=== PATIENT | female | born 1970 | race Caucasian/White ===

== ENCOUNTER 2018-04-05 00:46 | Emergency (ER) | payer OTHER ==
[~2018-04-05] VITALS: Ht 162.6 cm; Wt 90.0 kg
[2018-04-05 01:05] LABS: APPEARANCE SL.HAZY ((CLEAR)); BILIRUBIN NEGATIVE; BLOOD NEGATIVE; COLOR YELLOW ((YELLOW)); GLUCOSE (STRIP) NEGATIVE; KETONES NEGATIVE; LEUKOCYTES LARGE; NITRITE NEGATIVE; PROTEIN (STRIP) 30; SPECIFIC GRAVITY 1.025 (1.000-1.030)
[2018-04-05 01:08] LABS: BACTERIA RARE /HPF; CALCIUM OXALATE CRYSTALS 3+ /HPF; EPITHELIAL CELLS 3+ /HPF; HYALINE CASTS 0-5 /LPF; MUCUS 1+ /LPF; UCUL ADDED? YES; WHITE BLOOD CELLS 40-50 /HPF (0-5)
[2018-04-05 01:11] LABS: HEMATOCRIT 44.2 % (36.0-46.0); HEMOGLOBIN 15.5 G/DL (11.9-15.5); MCH 31.2 PG (29.0-34.0); MCHC 35.1 G/DL (30.0-36.0); MCV 88.9 FL (83-99); PLATELET COUNT 206 K/uL (156-360); RBC DIS.WIDTH-CV 12.5 % (11.8-14.6); RBC DIS.WIDTH-SD 40.8 % (39-53); RED BLOOD COUNT 4.97 M/uL (3.80-5.20); WHITE BLOOD COUNT 10.9 K/uL (4.1-10.2)
[2018-04-05 01:29] LABS: CHLORIDE 102 mEq/L (99-109); SODIUM 138 mEq/L (136-147)
[2018-04-05 01:31] LABS: GLUCOSE 109 mg/dL (70-99)
[2018-04-05 01:36] LABS: UREA NITROGEN (BUN) 13 mg/dL (9-23)
[2018-04-05 01:38] LABS: GFR ESTIMATE (CALCULATED) > 59 mL/min/
[2018-04-05 01:44] LABS: QUANTITATIVE HCG < 4.0 MIU/ML
[2018-04-05 02:08] LABS: ALBUMIN 4.6 g/dL (3.2-4.8)
[2018-04-05 02:10] LABS: TOTAL PROTEIN 7.8 g/dL (6.4-8.3)
[2018-04-05 02:12] LABS: TOTAL BILIRUBIN 0.8 mg/dL (0.0-1.0)
[2018-04-05 02:14] LABS: ALKALINE PHOSPHATASE 116 IU/L (3-129)
[2018-04-05 02:16] LABS: ALT (GPT) 25 IU/L (3-49); AST (GOT) 17 IU/L (2-34); DIRECT BILIRUBIN 0.2 mg/dL (0.0-0.3)
[2018-04-05 02:17] LABS: LIPASE 60 U/L (1.0-51.0)
[2018-04-05] MEDS ORDERED: MOTRIN800 MG PO (05:00)
[2018-04-05] MEDS ORDERED: KEFLEX500 MG PO (05:00)
[2018-04-05 05:36] VITALS: BP 161/98
== END 2018-04-05 05:36 | disposition home or self-care (01) ==
LOC: EME 00:46
DX: N39.0 Urinary tract infection, site not specified (principal); M79.7 Fibromyalgia; F17.200 Nicotine dependence, unspecified, uncomplicated; Z85.9 Personal history of malignant neoplasm, unspecified
CPT/HCPCS: 74177; 80048; 80076; 81003; 83690; 84702; 85027; 87086; 99281; 99285; J3010; J7030